=== PATIENT | female | born 1975 | race Caucasian/White ===

== ENCOUNTER → 2017-09-09 | Emergency (ER) | payer BC ==
[~2017-09-09] VITALS: Ht 160 cm; Wt 109.0 kg
[~2017-09-09] MED LIST: FAMO20TA44 PO; LIDOcaine Viscous 15ml cup MM PRN; OMEP20CA10 PO; ONDA4TAB9 SL; SUCR1ORA2 PO; mag hydrox/Alum hydrox/simeth 30ml oral suspension PO ONE; sucralfate 1gm/10ml UD suspension PO SCH
[2017-09-09 16:43] VITALS: BP 150/88
[2017-09-09 16:59] LABS: BASOPHILS % (AUTO) 0.5 % (0-1); EOSINOPHILS # (AUTO) 0.2 X10'3 (0-0.9); EOSINOPHILS % (AUTO) 2.1 % (0-6); HEMOGLOBIN 12.4 g/dl (12.0-16.0); LYMPHOCYTES # (AUTO) 1.7 X10'3 (1.1-4.8); LYMPHOCYTES % (AUTO) 20.1 % (21-51); MEAN CORPUSCULAR HEMOGLOBIN 25.9 PG (27.0-31.0); MEAN CORPUSCULAR HGB CONC 32.7 % (33.0-36.5); MEAN CORPUSCULAR VOLUME 79.3 FL (78-98); MEAN PLATELET VOLUME 8.1 FL (7.4-10.4); MONOCYTES # (AUTO) 0.6 X10'3 (0-0.9); MONOCYTES % (AUTO) 7.4 % (2-12); NEUTROPHILS % (AUTO) 69.9 % (42-75); PLATELET COUNT 387 X10'3 (140-440); RED BLOOD COUNT 4.79 X10'6 (4.20-5.60); RED CELL DISTRIBUTION WIDTH 15.6 % (11.5-14.5); WHITE BLOOD COUNT 8.6 X10'3 (4.5-11.0)
[2017-09-09 17:13] LABS: ALANINE AMINOTRANSFERASE 25 U/L (12-78); ALBUMIN 3.8 G/DL (3.4-5.0); ALBUMIN/GLOBULIN RATIO 0.9 (1.1-1.5); ALKALINE PHOSPHATASE 106 IU/L (46-116); ANION GAP 11 (8-16); ASPARTATE AMINO TRANSFERASE 23 U/L (10-37); BILIRUBIN,TOTAL 0.4 MG/DL (0.1-1.0); BLOOD UREA NITROGEN 9 MG/DL (7-18); BUN/CREATININE RATIO 12.9 (6.6-38.0); CALCIUM 9.4 MG/DL (8.5-10.1); CHLORIDE 103 MMOL/L (99-107); GLUCOSE 94 MG/DL (70-104); LIPASE 210 U/L (73-393); POTASSIUM 3.7 MMOL/L (3.5-5.1); SODIUM 141 MMOL/L (135-145); TOTAL CARBON DIOXIDE 27.4 MMOL/L (24-32); eGFR > 90 ML/MIN
[2017-09-09 17:18] LABS: CLARITY,URINE CLOUDY (Clear); COLOR,URINE YELLOW (Yellow); GLUCOSE, URINE NEGATIVE (Neg); KETONES,URINE 15 mg/dl (Neg); LEUKOCYTE ESTERASE ,URINE NEGATIVE (Neg); NITRITES, URINE NEGATIVE (Neg); OCCULT BLOOD,URINE LARGE (Neg); PROTEIN,URINE NEGATIVE (Neg); URINE HCG NEGATIVE (NEG)
[2017-09-09 17:20] LABS: UA COLLECTION TYPE CLN CATCH MIDSTREAM
[2017-09-09 17:25] LABS: BACTERIA,URINE NONE SEEN /HPF (Neg); RBC,URINE NONE SEEN /HPF (0-2); SQUAMOUS EPITHELIAL CELL,UR MODERATE /LPF (FEW); WBC,URINE 0-4 /HPF (0-4)
== END | disposition home or self-care (01) ==
LOC: ER 16:09
DX: R10.13 Epigastric pain (principal); Z98.84 Bariatric surgery status; Z90.49 Acquired absence of other specified parts of digestive tract
CPT/HCPCS: 36415; 80053; 81001; 81025; 83690; 85025; 99284

== ENCOUNTER 2017-09-10 12:25 | Emergency (ER) | payer BC ==
[~2017-09-10] VITALS: Ht 160 cm; Wt 110.0 kg
[~2017-09-10 12:25] MED LIST changes: -LIDOcaine Viscous 15ml cup MM PRN; -mag hydrox/Alum hydrox/simeth 30ml oral suspension PO ONE; -sucralfate 1gm/10ml UD suspension PO SCH
[2017-09-10 15:25] VITALS: BP 138/78
[2017-09-10] MEDS ORDERED: fentaNYL/PF 50MCG/1 ML 2ML syringe IV PRN (15:25)
[2017-09-10] MEDS ORDERED: MIDAZolam 5mg/5ml vial IV PRN (15:25)
[2017-09-10] MEDS ORDERED: simethicone 40mg/0.6ml oral drops 30ml MC ONE (15:25)
[2017-09-10] MEDS ORDERED: LIDOcaine Viscous 15ml cup PO ONE (15:25)
[2017-09-10] MEDS ORDERED: MIDAZolam 1mg/ml 10ml vial ONE (15:35)
[2017-09-10] MEDS ORDERED: fentaNYL/PF 50MCG/1 ML 2ML syringe ONE (15:35)
[2017-09-10] MEDS ORDERED: LIDOcaine Viscous 15ml cup ONE (15:36)
[2017-09-10 15:56] VITALS: BP 138/88
[2017-09-10] MEDS ORDERED: normal saline 1000ml 1,000 ML IV SCH (15:58)
[2017-09-10] MEDS ORDERED: mag hydrox/Alum hydrox/simeth 30ml oral suspension PO PRN (16:00)
[2017-09-10] MEDS ORDERED: magnesium 2GM in 50ml NS 50 ML IV PRN (16:00)
[2017-09-10] MEDS ORDERED: magnesium hydroxide 30ml (MOM) UD suspension PO PRN (16:00)
[2017-09-10] MEDS ORDERED: acetaminophen 325mg tablet PO PRN (16:00)
[2017-09-10] MEDS ORDERED: potassium Cl 40MEQ/NS 500ml 500 ML IV PRN ×2 (16:00)
[2017-09-10] MEDS ORDERED: potassium Cl 20 mEq SR tablet PO PRN ×2 (16:00)
[2017-09-10] MEDS ORDERED: K and/or MAG REPLACEMENT MC SCH (16:00)
[2017-09-10] MEDS ORDERED: ondansetron/PF 4mg/2ml inj IV PRN (16:00)
[2017-09-10] MEDS ORDERED: magnesium 4gm in 100ml NS 100 ML IV PRN (16:00)
[2017-09-10] MEDS ORDERED: morphine 2 MG/ML inj. syringe IV PRN (16:00)
[2017-09-10 16:06] VITALS: BP 138/88
[2017-09-10 16:16] VITALS: BP 144/103
[2017-09-10 16:26] VITALS: BP 135/88
[2017-09-10 17:31] VITALS: BP 135/88
[2017-09-10] MEDS ORDERED: pantoprazole 40 MG vial IV SCH (20:00)
== END 2017-09-10 17:34 | disposition home or self-care (01) ==
LOC: ER 12:26 → ED HOLD 15:58 → UNDOADMIN 15:58 → ER 17:34 → UNDODISIN 17:50
DX: R10.13 Epigastric pain (principal); G89.29 Other chronic pain; M25.571 Pain in right ankle and joints of right foot; Z88.6 Allergy status to analgesic agent; Z98.84 Bariatric surgery status; Z90.49 Acquired absence of other specified parts of digestive tract
CPT/HCPCS: 43235; 74176; 99152; 99285; J2250; J3010; J7030; A4620; G0500